=== PATIENT | male | born 1940 | race Caucasian/White ===

== ENCOUNTER 2016-08-15 17:52 | Inpatient (IN) | payer MEDICARE, OTHER ==
[~2016-08-15] VITALS: Ht 180.3 cm; Wt 95.5 kg
[2016-08-15 19:08] LABS: HEMATOCRIT 31.2 % (42.0-54.0); HEMOGLOBIN 10.3 g/dL (13.5-17.5); MCH 34.9 pg (26.0-34.0); MCV 105.8 fL (80.0-100.0); MEAN PLATELET VOLUME 11.3 fL (7.4-10.4); PLATELET COUNT 230 10x3/uL (130-400); RBC 2.95 10x6/uL (4.20-6.10); RDW 17.7 % (11.5-14.5)
[2016-08-15 19:34] LABS: LYMPHOCYTES 10 % (15-50); MONOCYTES 1 % (2-11); NEUTROPHILS 88 % (40-80); PLATELET ESTIMATE NORMAL
[2016-08-15 19:35] LABS: ALBUMIN 2.8 g/dL (3.4-5.0); ALKALINE PHOSPHATASE 121 U/L (46-116); ALT (SGPT) 26 U/L (10-68); BILIRUBIN - TOTAL 0.58 mg/dL (0.2-1.3); CALC OSMOLALITY 282 mosm/kg (275-300); CALCIUM 9.5 mg/dL (8.5-10.1); CARBON DIOXIDE 26.9 mmol/L (21.0-32.0); CHLORIDE - SERUM 101 mmol/L (98-107); CREATININE - SERUM 1.5 mg/dL (0.6-1.3); GLUCOSE 151 mg/dL (74-106); POTASSIUM - SERUM 5.3 mmol/L (3.5-5.1); PROTEIN - SERUM 6.4 g/dL (6.4-8.2); SODIUM 137 mmol/L (136-145); UREA NITROGEN 28 mg/dL (7-18); eGFR NON AFRICAN AMERICAN 48 mL/min (90-120)
[2016-08-15 19:55] LABS: TROPONIN-I < 0.017 ng/mL (0.000-0.060)
[2016-08-15 21:55] LABS: APPEARANCE CLEAR (CLEAR); BILIRUBIN NEGATIVE (NEGATIVE); COLOR YELLOW (YELLOW); GLUCOSE NEGATIVE (NEGATIVE); KETONE NEGATIVE (NEGATIVE); LEUKOCYTE ESTERASE NEGATIVE (NEGATIVE); NITRITE NEGATIVE (NEGATIVE); PROTEIN TRACE mg/dL (NEGATIVE); UROBILINOGEN NORMAL (NORMAL)
[2016-08-15 21:56] LABS: BACTERIA FEW /hpf (NONE SEEN); EPITHELIAL CELLS 0-5 /hpf (0-5); MUCUS <1+ /lpf (NONE SEEN); WHITE CELLS - URINE 0-5 /hpf (0-5)
[2016-08-16] VITALS (14 sets, daily range): BP systolic 122–162; BP diastolic 67–116; Ht 180.3 cm; Wt 95.5 kg
--- NOTE | 2016-08-16 01:05 | NUR ---
REC'D TO ROOM 2215 FROM ER DEPT PER STRETCHER A 76 Y/O W/M PER SERVICES DR. GARNER WITH DX PNEUMONIA WITH HX LUNG CANCER. 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 IV PATENT LEFT AC SALINE LOCKED. HOB UP 40 DEGREES. O2 ON 9L/M PER OXIMYZER SAT=92-93%.ASSESSMENT PER ADMIT PACKET.
[2016-08-16] MEDS ORDERED: ELIQUIS2.5 MG PO (02:18)
[2016-08-16] MEDS ORDERED: CARDIZEM SR90 MG PO (02:19)
[2016-08-16] MEDS ORDERED: METOPROLOL TART50 MG PO (02:20)
[2016-08-16] MEDS ORDERED: SYNTHROID200 MC1 PO (02:20)
[2016-08-16] MEDS ORDERED: LIPITOR80 MG PO (02:21)
[2016-08-16] MEDS ORDERED: XALATAN 0.0052.5 ML EACH EYE (02:21)
[2016-08-16] MEDS ORDERED: PACERONE200 MG PO (02:23)
[2016-08-16] MEDS ORDERED: ICAP PO (02:27)
[2016-08-16] MEDS ORDERED: VITAMIN B COMPL1 TAB PO (02:28)
[2016-08-16] MEDS ORDERED: MULTI-DAY VITAM1 TAB PO (02:30)
[2016-08-16] MEDS ORDERED: FLORANEX / LACT1 TAB PO (02:32)
[2016-08-16] MEDS ORDERED: MYLANTA / MAALO30 ML PO (02:33)
[2016-08-16] MEDS ORDERED: MELATONIN5 MG PO (02:34)
[2016-08-16] MEDS ORDERED: MILK OF MAGNESI30 ML PO (02:35)
[2016-08-16] MEDS ORDERED: ACETAMINOPHEN500 M1 PO (02:37)
[2016-08-16] MEDS ORDERED: HYDROCODONE-APA1 TAB PO (02:38)
--- NOTE | 2016-08-16 03:00 | NUR ---
RT HERE FOR UPDRAFT TX INCREASED O2 TO 12 L/M. IV FLUIDS OF NS INFUSING AT 75CC'S/HR VOIDED IN URINAL.SR UP X2 CALL LIGHT WITHIN REACH.
--- NOTE | 2016-08-16 05:05 | NUR ---
EYES CLOSED RESPIRATIONS WITH EASE AND UNLABORED
[2016-08-16 06:02] LABS: HEMATOCRIT 30.1 % (42.0-54.0); HEMOGLOBIN 9.9 g/dL (13.5-17.5); MCH 34.5 pg (26.0-34.0); MCHC 32.9 g/dL (31.0-37.0); MCV 104.9 fL (80.0-100.0); MEAN PLATELET VOLUME 11.4 fL (7.4-10.4); PLATELET COUNT 229 10x3/uL (130-400); RBC 2.87 10x6/uL (4.20-6.10); RDW 17.6 % (11.5-14.5); WBC 21.8 10x3/uL (4.8-10.8)
[2016-08-16 06:10] LABS: ANION GAP 15.5 mmol/L (8-16); CALCIUM 9.1 mg/dL (8.5-10.1); CARBON DIOXIDE 25.7 mmol/L (21.0-32.0); CREATININE - SERUM 1.4 mg/dL (0.6-1.3)
[2016-08-16 06:15] LABS: POTASSIUM - SERUM 4.2 mmol/L (3.5-5.1)
[2016-08-16 06:41] LABS: ANISOCYTOSIS 1+; LYMPHOCYTES 4 % (15-50); MONOCYTES 5 % (2-11); NEUTROPHILS 87 % (40-80); PLATELET ESTIMATE NORMAL
--- NOTE | 2016-08-16 08:00 | NUR ---
AWAKE AND ALERT AT THIS TIME. OXYGEN ON 12L VIA OXYMIZER. UNABLE TO OBTAIN DAILY WEIGHT DUE TO PT UNABLE TO STAND AND WHITE WEIGH BED NOT AVAILABLE AT THIS TIME. CALL LIGHT IN REACH. BOX ALARM APPLIED TO BED AND NON SKID SOCKS APPLIED. IV TO LEFT AC PATENT WITH NO S/S OF INFILTRATION PRESENT. CALL LIGHT IN REACH, WILL CONTINUE WITH PLAN OF CARE.
--- NOTE | 2016-08-16 10:58 | NUR ---
SCD'S APPLIED TO BLE AT THIS TIME AND EXPLAINED TO PT AND HIS SPOUSE.
--- NOTE | 2016-08-16 12:00 | NUR ---
TELEMETRY PLACED ON PT. IN UNCONTROLLER A-FIB PER MICHAEL, ESTATE AGENT.
[2016-08-16 12:50] LABS: CKMB 1.3 U/L (0.0-3.6); CREATINE KINASE 52 UL (21-232); PRO BNP 1801 pg/mL (0-450); TROPONIN-I < 0.017 ng/mL (0.000-0.060)
--- NOTE | 2016-08-16 14:01 | NUR ---
TO XRAY PER BED AND PORTABLE OXYGEN AT 4LNC. REPORT GIVEN TO ALDAIR. TO ICU AFTER CT
--- NOTE | 2016-08-16 14:12 | NUR ---
PT ARRIVED ON UNIT VIA BED FROM CT. RT AT BEDSIDE, SET UP VAPOTHERM AT 100% 40L. ABLE TO ANSWER ALL QUESTIONS AND OBEY COMMANDS. ALERT AND ORIENTED X4. BREATHING LABORED AND PT TACHYPNIC BUT BETTER ON VAPOTHERM. MEDS TO BE GIVEN AND DOCUMENTED PER ORDER. SHIFT ASSESSMENT DOCUMENTED. PT GIVEN URINAL TO VOID NEEDED. SCDS ON LOWER EXTREMITIES BILAT. WILL CONTINUE TO MONITOR CLOSELY. O2 SAT BEING MONITORED AND ALARMS ON.
[2016-08-16 17:00] LABS: CKMB 1.5 U/L (0.0-3.6); CREATINE KINASE 56 UL (21-232)
--- NOTE | 2016-08-16 17:00 | NUR ---
PT ATTEMPTING TO HAVE BM ON BEDPAN. GIVEN DINNER TRAY. WILL ALLOW PT TO EAT AFTER BM. PT REMAINS IN UNCONTROLLED AFIB, MONITORING CLOSELY
[2016-08-16 17:01] LABS: TROPONIN-I < 0.017 ng/mL (0.000-0.060)
--- NOTE | 2016-08-16 17:35 | NUR ---
RN AND DR VICTORIA DISCUSSED CODE STATUS WITH PT. HE STATES THAT HE DOES NOT WANT TO BE INTUBATED OR RESUSCITATED IN THE EVENT OF A CODE, HE WISHES THAT WE USE EMERGENCY DRUGS ONLY. ORDER IN FOR CODE STATUS AND CODE REQUEST SHEET FILLED OUT, SIGNED, AND IN CHART
--- NOTE | 2016-08-16 20:23 | NUR ---
VENOUS DOPPLER DONE. DR. GEORGES NOTIFIED OF HR STILL 140 AND STATUS REPORT GIVEN, ORDER TO GO TO MAX OF 20MG/HR ON CARDIZEM GTT.
--- NOTE | 2016-08-16 21:04 | NUR ---
PO MEDS GIVEN PER MD ORDER.
--- NOTE | 2016-08-16 21:41 | NUR ---
DR. REYES AND NOTIFIED OF HR 140 WITH CARDIZEM GTT AT 20MG/HR - NEW ORDERS REC'D.
--- NOTE | 2016-08-16 23:19 | NUR ---
REASSESSMENT PER FLOWSHEET, NO ACUTE CHANGES.. CM - AFLUTTER RATE 133. FIO2 AT 65%. PT DENIES NEEDS.
[2016-08-16 23:43] LABS: CKMB 1.8 U/L (0.0-3.6); CREATINE KINASE 59 UL (21-232)
[2016-08-16 23:45] LABS: TROPONIN-I < 0.017 ng/mL (0.000-0.060)
[2016-08-17] VITALS (25 sets, daily range): BP systolic 138–178; BP diastolic 50–101
--- NOTE | 2016-08-17 00:49 | NUR ---
CM - VARIABLE A-FLUTTER, RATE 90S - 110S. FIO2 NOW 50%.. PT REPORTS "FEELING BETTER"..ALARMS ON AND C/L IN REACH.
--- NOTE | 2016-08-17 02:20 | NUR ---
CM- NSR RATE 90S.
--- NOTE | 2016-08-17 03:15 | NUR ---
REASSESSMENT PER FLOWSHEET, NO ACUTE CHANGES..PT REPORTS ADEQUATE PAIN RELIEF. VSS. C/L IN REACH.
[2016-08-17 03:40] LABS: BASOPHILS 0 % (0-2); EOSINOPHILS 0 % (0-7); HEMATOCRIT 28.1 % (42.0-54.0); HEMOGLOBIN 9.4 g/dL (13.5-17.5); IMMATURE GRANULOCYTES 0.3 % (0-5); LYMPHOCYTES 3.9 % (15-50); MCH 34.4 pg (26.0-34.0); MCHC 33.5 g/dL (31.0-37.0); MCV 102.9 fL (80.0-100.0); MONOCYTES 1.7 % (2-11); NEUTROPHILS 94.1 % (40-80); PLATELET COUNT 199 10x3/uL (130-400); RBC 2.73 10x6/uL (4.20-6.10); WBC 15.2 10x3/uL (4.8-10.8)
[2016-08-17 04:08] LABS: ALBUMIN 2.1 g/dL (3.4-5.0); ANION GAP 12.4 mmol/L (8-16); BILIRUBIN - TOTAL 0.81 mg/dL (0.2-1.3); CALCIUM 9.2 mg/dL (8.5-10.1); CARBON DIOXIDE 26.1 mmol/L (21.0-32.0); CREATININE - SERUM 1.2 mg/dL (0.6-1.3); PROTEIN - SERUM 6.1 g/dL (6.4-8.2)
[2016-08-17 04:09] LABS: POTASSIUM - SERUM 3.5 mmol/L (3.5-5.1)
--- NOTE | 2016-08-17 14:45 | NUR ---
PT REQUIRING 100% VAPOTHERM AND SPO2 DROPS TO 80% AND IS UNABLE TO RECOVER WITH DEEP BREATHS. 100% BIPAP PLACED AND DR GEORGES NOTIFIED. SPO2 INCREASED TO 96% WITH BIPAP.
--- NOTE | 2016-08-17 19:00 | NUR ---
REPORT RECEIVED AND ASSESSMENT COMPLETED. SEE FLOWSHEET FOR FULL DETAILS. PT ON BIPAP AT 75 AT THIS TIME. LUNGS HAVE RONCHI IN UPPER LOBES. LOWER LOBES DIMINISHED. QUICKLY DESATS WITH ACTIVITY. PT REQUESTED ANXIETY MED. WILL CONTACT DR GEORGES.
--- NOTE | 2016-08-17 21:17 | NUR ---
PORT IV INFILTRATED; NEEDLE CAME OUT. REINSERTED NEW IV INTO PORT; PATENT. DRAWS AND FLUSHES APPROPRIATELY. WILL CONTINUE TO MONITOR.
--- NOTE | 2016-08-17 23:30 | NUR ---
REASSESSMENT COMPLETED. SEE FLOWSHEET FOR FULL DETAILS. PT NOW ON BIPAP AT 100%.
[2016-08-18] VITALS (24 sets, daily range): BP systolic 120–177; BP diastolic 68–119
--- NOTE | 2016-08-18 01:00 | NUR ---
PT BECOMING CONFUSED SHIFT PROGRESSESS WILL CONTINUE TO MONITOR FOR CHANGES.
--- NOTE | 2016-08-18 03:52 | NUR ---
PT REFUSING TO KEEP SAFE. REMOVING BIPAP; O2 SATS QUICKLY FALL 75-85%. PT HAD PURPLE/BLUE DISCOLORATION IN FACE AND BEGAN TO WAVE ARMS AROUND AND WOULDN'T LET THE BIPAP BE PLACED. RESTRAINTS INITIATED.
[2016-08-18 04:46] LABS: BASOPHILS 0 % (0-2); EOSINOPHILS 0 % (0-7); HEMATOCRIT 28.3 % (42.0-54.0); HEMOGLOBIN 9.3 g/dL (13.5-17.5); IMMATURE GRANULOCYTES 0.5 % (0-5); LYMPHOCYTES 0.9 % (15-50); MCH 33.9 pg (26.0-34.0); MCHC 32.9 g/dL (31.0-37.0); MCV 103.3 fL (80.0-100.0); MEAN PLATELET VOLUME 11.2 fL (7.4-10.4); MONOCYTES 3.9 % (2-11); NEUTROPHILS 94.7 % (40-80); PLATELET COUNT 214 10x3/uL (130-400); RBC 2.74 10x6/uL (4.20-6.10); RDW 16.9 % (11.5-14.5); WBC 17.1 10x3/uL (4.8-10.8)
[2016-08-18 05:08] LABS: ALBUMIN 2.1 g/dL (3.4-5.0); BILIRUBIN - TOTAL 0.63 mg/dL (0.2-1.3); CALCIUM 9.1 mg/dL (8.5-10.1); CARBON DIOXIDE 25.6 mmol/L (21.0-32.0); CREATININE - SERUM 1.4 mg/dL (0.6-1.3); POTASSIUM - SERUM 3.6 mmol/L (3.5-5.1); PROTEIN - SERUM 6.3 g/dL (6.4-8.2)
--- NOTE | 2016-08-18 05:39 | NUR ---
LABETALOL 10 MG GIVEN AT 2218 AND 0410 FOR SBP >170. 0530 PT O2 SAT DROPPING AND HR INCREASING. SAT NOW AT 89% AND HR AT 115. DR GEORGES CALLED. NEW ORDER RECEIVED FOR MORPHINE. WILL GIVE NEEDED FOR AIR HUNGER
--- NOTE | 2016-08-18 09:19 | NUR ---
Nutrition follow-up: Diet: low sodium with chocolate Ensure all meals PO intake poor due to pt struggling to breath at this time. Labs reviewed FSBS high due to high dose steroids in use +BM Pt will need nutrition support started within 24 hours if medically feasible. RDN following.
--- NOTE | 2016-08-18 12:52 | NUR ---
1000-PT INC OF URINE AND IS UNABLE TO TOLERATE LINEN CHANGE. IBARRA CATH PLACED ORDERED. PT BATHED AND LINENS CHANGED. DR VICTORIA HERE THIS AM. PT IS TACHYPNIC EVEN AFTER 2MG MS GIVEN. 5MG MS GIVEN ORDERED AND PT RESTING QUIETLY.
--- NOTE | 2016-08-18 15:15 | NUR ---
* Is the patient Alert and Oriented? Yes 0 * How many steps to enter\exit or inside your home? Ramp 0 * PCP Dr. Nitish Batista 0 * Pharmacy [facility] 0 * Preadmission Environment Long Term Facility 0 * Facility Name [facility] 0 * ADLs Partial Dependent 0 * Partial ADLs (Assistance needed) Ambulation Bathing Dressing Medication Management Toileting Transfers 0 * Equipment Bedside Commode Cane Elevated [place] Seat Oxygen Rolling Walker Shower Chair 0 * List name and contact numbers for known caregivers / representatives who currently or will assist patient after discharge: Spouse - Angelina [phone] 0 * Additional services required to return to the preadmission environment? Yes 0 * Can the patient safely return to the preadmission environment? Yes 0 * Has this patient been hospitalized within the prior 30 days at any hospital? Yes 08/18/2016 15:08 DCP: Discharge Planning Patient Name: SABINE VICK Admission Status: ER Accout number: [id number] Admission Date: 08-15-2016 : 1938 Admission Diagnosis:PNEUMONIA, UNSPECIFIED ORGANISM Attending: PRICILLA Current LOS: 3 Planned Disposition: Long Term Facility Primary Insurance: [facility] Discharge Planning Comments: CM met with spouse at bedside. She states patient was living at home with her until about a month ago - she states he has been at [facility] twice in the last 30 days -at discharge both times, he went to [facility] for skilled rehab. She reports he required assistance for all ADL's. She states patient will return to SNF at discharge for further rehab. Answered questions & concerns. CM will follow. Documentation Lead: Magnolia Michelle
--- NOTE | 2016-08-18 19:00 | NUR ---
REPORT REC'D.PATINET CARE ASSUMED. ASSESSMENT COMPLETED. SEE FLOW SHEETS FOR ALL FINDINGS. PT ON BIPAP, AROUSES EASILY WITH VOICES, FOLLOW COMMANDS, ANSWERED QUESTIONS. SR ON CM WITH HR AT 84, LUNG SOUNDS CLEAR/ DIMINSHED TO ALL SERRANO,UNLABORED AT THIS TIME. DENIES ANY DISCOMFORT AT THIS TIME. IBARRA INTACT TO GRAVITY WITH CL/Y DRAINAGE TO BAG. PPP. CALL LIGHT IN REACH. JER N LOW POSITIONED AND LOCKED. WILL CONT TO MONITOR.
--- NOTE | 2016-08-18 21:00 | NUR ---
NO VISITORS AT THIS TIME. SCHEDULED MEDS GIVEN PER ORDER. NO NEEDS VOICES. REPOSITIONED FOR COMFORT. HOB UP, SIDE RAILS UPX2. CALL LIGHT IN REACH.
--- NOTE | 2016-08-18 23:20 | NUR ---
REASSESSMENT COMPLETED. SEE FLOW SHEETS FOR ALL FINDINGS. NO ACUTE CHANGES NOTED AT THIS TIME. VSS. SR ON CM. DENIES ANY DISCOMFORT. REPOSITIONED FOR COMFORT. PILLOWS IN USE FOR SUPPORT. CALL LIGHT IN REACH. CPOC.
[2016-08-19] VITALS (25 sets, daily range): BP systolic 119–169; BP diastolic 60–96
--- NOTE | 2016-08-19 01:00 | NUR ---
PT ON BIPAP RESTING QUIETLY WITHOUT DISTRESS. VSS. SR ON CM. NO NEEDS VOICES. CPOC
--- NOTE | 2016-08-19 03:00 | NUR ---
REASSESSMENT COMPLETED PER FLOW SHEETS. NO ACUTE CHANGES IN PT'S CONDITON NOTED. VSS. SR ON CM. CPOC.
[2016-08-19 03:58] LABS: BASOPHILS 0 % (0-2); EOSINOPHILS 0 % (0-7); HEMATOCRIT 27.4 % (42.0-54.0); IMMATURE GRANULOCYTES 0.3 % (0-5); LYMPHOCYTES 2.2 % (15-50); MCH 33.7 pg (26.0-34.0); MCHC 32.8 g/dL (31.0-37.0); MCV 102.6 fL (80.0-100.0); MONOCYTES 4.6 % (2-11); NEUTROPHILS 92.9 % (40-80); PLATELET COUNT 188 10x3/uL (130-400); RBC 2.67 10x6/uL (4.20-6.10); RDW 16.6 % (11.5-14.5)
[2016-08-19 04:00] LABS: WBC 8.8 10x3/uL (4.8-10.8)
--- NOTE | 2016-08-19 04:00 | NUR ---
I&O COMPLETED WITHOUT DIFFIC.
[2016-08-19 05:02] LABS: ALBUMIN 2.1 g/dL (3.4-5.0); BILIRUBIN - TOTAL 0.4 mg/dL (0.2-1.3); CALCIUM 9.3 mg/dL (8.5-10.1); CARBON DIOXIDE 27.8 mmol/L (21.0-32.0); CREATININE - SERUM 1.5 mg/dL (0.6-1.3); POTASSIUM - SERUM 3.8 mmol/L (3.5-5.1)
--- NOTE | 2016-08-19 06:00 | NUR ---
NO VISITORS AT THIS TIME. VSS.
[2016-08-19 11:19] LABS: ANA REFLEX - DIRECT Negative (Negative)
--- NOTE | 2016-08-19 19:00 | NUR ---
Assessment complete. See flowsheet. Pt resting upon entrance into room with VSS and awakens to verbal stimulation. Pt alert, oriented x4 and following all commands and conversation with no neuro deficits noted. Pupils size 3 bilaterally ERRLA. Pt receiving O2 via 60% Vapotherm. Lung sounds clear to all so with diminished lower lobes. Pt with weak/non-productive cough. HR SR with S1S2 auscultated. All peripheral pulses +2 with capillary refill <3 seconds. Left upper chest infusiport site CDI; no s/s infection with 1/2NS infusing @ 50cc/hr. Abdomen soft with BS present to all quadrants. Pt denies nausea. Ocamop catheter secure retrieving concentrated, yellow urine. Pt pulled up in bed and positioned to left side with HOB @ 30 degrees. Arms and heels rebridged. Pt denies pain or distress at this time. SCDs secure. Fresh ice water provided. CPOC.
--- NOTE | 2016-08-19 20:22 | NUR ---
FiO2 increased to 70% per Micki RT for SPO2 88%
--- NOTE | 2016-08-19 21:00 | NUR ---
PM meds administered. Pt resting with VSS and denies further needs at this time. Call light and bedside table remain within pt reach. CPOC.
--- NOTE | 2016-08-19 23:00 | NUR ---
Reassessment complete. See flowsheet. Pt resting quietly and remain on vapotherm @ 70%. VSS. SPO2 93% at this time. Pain denied. No neuro changes to note. Pt lung sounds remain clear to all so with diminished lower lobes. HR SR. NO IVF changes to note. BS +. Ocampo remains secure retrieving concentrated, genoveva urine. Pt helped to reposition to back with HOB @ 30 degrees. Knees bent and arms/heels bridged. Pt denies further needs at this time and continues to rest. Call light and bedside table remain within pt reach. CPOC.
[2016-08-20] VITALS (24 sets, daily range): BP systolic 155–188; BP diastolic 58–125
--- NOTE | 2016-08-20 01:00 | NUR ---
Pt resting quietly with VSS. No s/s pain or distress and allowed to continue resting undisturbed. Call light and bedside table remain within pt reach. CPOC.
--- NOTE | 2016-08-20 03:00 | NUR ---
Reassessment complete. See flowsheet. Pt resting quietly and remain on vapotherm @ 70%. VSS. SPO2 94% at this time. Pain denied. No neuro changes to note. Pt lung sounds remain clear to all so with diminished lower lobes. HR SR. NO IVF changes to note. BS +. Ocampo remains secure retrieving concentrated, yellow urine. Pt helped to reposition to back with HOB @ 30 degrees for AM CXR. Arms and heels remain bridged. Fresh ice water provided per pt request. Call light and bedside table remain within pt reach. CPOC.
[2016-08-20 04:47] LABS: BASOPHILS 0 % (0-2); EOSINOPHILS 0 % (0-7); HEMATOCRIT 26.3 % (42.0-54.0); HEMOGLOBIN 8.7 g/dL (13.5-17.5); IMMATURE GRANULOCYTES 0.6 % (0-5); LYMPHOCYTES 2.8 % (15-50); MCH 33.7 pg (26.0-34.0); MCHC 33.1 g/dL (31.0-37.0); MCV 101.9 fL (80.0-100.0); MONOCYTES 4.5 % (2-11); NEUTROPHILS 92.1 % (40-80); PLATELET COUNT 175 10x3/uL (130-400); RBC 2.58 10x6/uL (4.20-6.10); RDW 16.5 % (11.5-14.5); WBC 10.8 10x3/uL (4.8-10.8)
--- NOTE | 2016-08-20 05:00 | NUR ---
Pt resting quietly with VSS; no s/s pain or distress. Call light and bedside table remain within pt reach. CPOC.
[2016-08-20 05:03] LABS: ALBUMIN 1.9 g/dL (3.4-5.0); ANION GAP 10.2 mmol/L (8-16); BILIRUBIN - TOTAL 0.41 mg/dL (0.2-1.3); CALCIUM 9.1 mg/dL (8.5-10.1); CREATININE - SERUM 1.8 mg/dL (0.6-1.3); MAGNESIUM - SERUM 1.4 mg/dL (1.8-2.4); PHOSPHOROUS 3.3 mg/dL (2.5-4.9); POTASSIUM - SERUM 4.2 mmol/L (3.5-5.1); PROTEIN - SERUM 5.6 g/dL (6.4-8.2)
--- NOTE | 2016-08-20 10:57 | NUR ---
NO CHANGE TO PRIMARY ASSESSMENT
--- NOTE | 2016-08-20 19:00 | NUR ---
Assessment complete. See flowsheet. Pt receiving UDTX upon entrance into room with VSS and is alert and oriented to person, place, time and following all commands and conversation with no neuro deficits noted. Pupils size 3 bilaterally ERRLA. Pt receiving O2 via 85% Vapotherm. Lung sounds clear to all so with diminished lower lobes. Pt with weak/non-productive cough. HR SR with S1S2 auscultated. All peripheral pulses +2 with capillary refill <3 seconds. Right upper chest infusiport site CDI; no s/s infection with 1/2NS infusing @ 75cc/hr. Abdomen soft with BS present to all quadrants. Pt denies nausea. Ocampo catheter secure retrieving concentrated, yellow urine. Pt pulled up in bed and positioned to left side with HOB @ 30 degrees. Arms and heels bridged. Pt denies pain or distress at this time. SCDs secure. Bedside table placed within pt reach. Call light and left hand of patient. Further needs denied. CPOC.
--- NOTE | 2016-08-20 21:00 | NUR ---
Pt resting with VSS. PM medications administered with PRN Clonidin 0.1mg for SBP > 170mmHg. See MAY.
--- NOTE | 2016-08-20 21:30 | NUR ---
Morphine 4mg IVP administered for c/o pain to "all over" as stated by patient. See MAR.
--- NOTE | 2016-08-20 23:00 | NUR ---
Reassessment complete. See flowsheet. Pt resting quietly and remain on vapotherm @ 85%. VSS. SPO2 93% at this time. Pain denied. No neuro changes to note. Pt lung sounds remain clear to all so with diminished lower lobes. HR SR. NO IVF changes to note. BS +. Ocampo remains secure retrieving concentrated, yellow urine. Pt helped to reposition to back with HOB @ 30 degrees. Arms and heels remain bridged. Pt denies further needs at this time and continues to rest. Call light and bedside table remain within pt reach. CPOC.
[2016-08-21] VITALS (24 sets, daily range): BP systolic 136–1628; BP diastolic 74–106
--- NOTE | 2016-08-21 01:00 | NUR ---
Pt resting quietly with VSS. No s/s pain or distress. Pt allowed to continue resting undisturbed. Call light and bedside table remain within reach. CPOC.
--- NOTE | 2016-08-21 03:00 | NUR ---
Reassessment complete. See flowsheet. Pt resting quietly and remain on vapotherm @ 85%. VSS. SPO2 97% at this time. Pain denied. No neuro changes to note. Pt lung sounds remain clear to all so with diminished lower lobes. HR SR. NO IVF changes to note. BS +. Ocampo remains secure retrieving concentrated, yellow urine. Pt helped to reposition to back with HOB @ 30 degrees for AM CXR. Arms and heels remain bridged. Pain denied at this time. No further request. Call light and bedside table remain within pt reach. CPOC.
[2016-08-21 04:31] LABS: BASOPHILS 0.1 % (0-2); EOSINOPHILS 0 % (0-7); HEMATOCRIT 27.9 % (42.0-54.0); HEMOGLOBIN 9.3 g/dL (13.5-17.5); IMMATURE GRANULOCYTES 1.3 % (0-5); LYMPHOCYTES 4.2 % (15-50); MCH 33.6 pg (26.0-34.0); MCHC 33.3 g/dL (31.0-37.0); MCV 100.7 fL (80.0-100.0); MEAN PLATELET VOLUME 11.5 fL (7.4-10.4); MONOCYTES 4.5 % (2-11); NEUTROPHILS 89.9 % (40-80); PLATELET COUNT 181 10x3/uL (130-400); RBC 2.77 10x6/uL (4.20-6.10); RDW 16.4 % (11.5-14.5); WBC 10.1 10x3/uL (4.8-10.8)
[2016-08-21 04:56] LABS: ALBUMIN 1.9 g/dL (3.4-5.0); ANION GAP 11.6 mmol/L (8-16); BILIRUBIN - TOTAL 0.47 mg/dL (0.2-1.3); CALCIUM 9.4 mg/dL (8.5-10.1); CARBON DIOXIDE 27.7 mmol/L (21.0-32.0); CREATININE - SERUM 1.9 mg/dL (0.6-1.3); DIGOXIN 2.35 ng/mL (0.90-2.00); MAGNESIUM - SERUM 1.5 mg/dL (1.8-2.4); POTASSIUM - SERUM 4.3 mmol/L (3.5-5.1); PROTEIN - SERUM 5.5 g/dL (6.4-8.2); VANCOMYCIN - RANDOM 25.2 ug/mL (10.0-20.0)
--- NOTE | 2016-08-21 05:00 | NUR ---
Pt self-positioned to left side and resting quietly with VSS. No s/s pain or distress. Pt allowed to continues resting undisturbed. Call light and bedside table remain within pt reach. CPOC.
--- NOTE | 2016-08-21 11:00 | NUR ---
NO CHANGE TO PRIMARY ASSESSMENT
--- NOTE | 2016-08-21 15:00 | NUR ---
NO CHANGE NOTED
--- NOTE | 2016-08-21 19:00 | NUR ---
Assessment complete. See flowsheet. Pt very anxious upon entrance into room with VSS and is alert and oriented to person, place, time/sit; following all commands and conversation with no neuro deficits noted. Pupils size 3 bilaterally ERRLA. Pt receiving O2 via 65% Vapotherm. Lung sounds clear to all so with diminished lower lobes. Pt with weak/non-productive cough. HR SR with PACs. S1S2 present. All peripheral pulses +2 with capillary refill <3 seconds. Right upper chest infusiport site CDI; no s/s infection with 1/2NS infusing @ 75cc/hr. Abdomen soft with BS present to all quadrants. Nausea denied. Ocampo catheter secure retrieving concentrated, yellow urine. Pt pulled up in bed and positioned to left side with HOB @ 30 degrees. Arms and heels bridged. Pt rates pain 5 out of 10 "all over" at this time but appears more anxious than in pain. Not time for PRN morphine at this time. Ativan 1mg IVP administered. Pt calmed. Lights in room off per pt request. this time. SCDs secure. Call light and bedside table placed within pt reach. CPOC.
--- NOTE | 2016-08-21 21:00 | NUR ---
Pt resting quietly with VSS; no s/s pain or distress and allowed to continue resting undisturbed.
--- NOTE | 2016-08-21 23:00 | NUR ---
Reassessment complete. See flowsheet. Pt resting quietly and remain on vapotherm @ 65. FiO2 94% at this time. Pain denied. No neuro changes to note. Pt lung sounds remain clear to all so with diminished lower lobes. HR SR. NO IVF changes to note. BS +. Ocampo remains secure retrieving concentrated, yellow urine. Pt helped to reposition to back with HOB @ 30 degrees. Arms and heels remain bridged. Pt denies further needs at this time and continues to rest. Call light and bedside table remain within pt reach. CPOC.
[2016-08-22] VITALS (24 sets, daily range): BP systolic 138–176; BP diastolic 73–94
--- NOTE | 2016-08-22 01:00 | NUR ---
Pt repositioned to right side. VSS. Pt denies pain at this time. Call light and bedside table remain within pt reach. CPOC.
--- NOTE | 2016-08-22 03:00 | NUR ---
Reassessment complete. See flowsheet. Pt resting quietly and awakens to verbal stimulation. FiO2 65%. SPO2 96% at this time. Pain denied. No neuro changes to note. Pt lung sounds remain clear to all so with diminished lower lobes. HR SR. NO IVF changes to note. BS +. Ocampo remains secure retrieving concentrated, yellow urine. Pt helped to reposition to back with HOB @ 30 degrees for AM CXR. Arms and heels remain bridged. Pain denied at this time. No further request. Call light and bedside table remain within pt reach. CPOC.
[2016-08-22 04:34] LABS: BASOPHILS 0 % (0-2); EOSINOPHILS 0 % (0-7); HEMATOCRIT 27.3 % (42.0-54.0); HEMOGLOBIN 9.3 g/dL (13.5-17.5); IMMATURE GRANULOCYTES 1.6 % (0-5); LYMPHOCYTES 3.6 % (15-50); MCH 33.9 pg (26.0-34.0); MCHC 34.1 g/dL (31.0-37.0); MCV 99.6 fL (80.0-100.0); MEAN PLATELET VOLUME 11.7 fL (7.4-10.4); MONOCYTES 4.2 % (2-11); NEUTROPHILS 90.6 % (40-80); PLATELET COUNT 166 10x3/uL (130-400); RBC 2.74 10x6/uL (4.20-6.10); RDW 16.4 % (11.5-14.5); WBC 10.3 10x3/uL (4.8-10.8)
[2016-08-22 04:56] LABS: ALBUMIN 1.8 g/dL (3.4-5.0); ANION GAP 10.4 mmol/L (8-16); BILIRUBIN - TOTAL 0.42 mg/dL (0.2-1.3); CALCIUM 8.3 mg/dL (8.5-10.1); CARBON DIOXIDE 26.4 mmol/L (21.0-32.0); CREATININE - SERUM 1.7 mg/dL (0.6-1.3); MAGNESIUM - SERUM 1.6 mg/dL (1.8-2.4); PHOSPHOROUS 4.4 mg/dL (2.5-4.9); POTASSIUM - SERUM 3.8 mmol/L (3.5-5.1); PROTEIN - SERUM 4.9 g/dL (6.4-8.2); VANCOMYCIN - RANDOM 17.3 ug/mL (10.0-20.0)
--- NOTE | 2016-08-22 05:00 | NUR ---
All IV tubing changes completed and labeled with swabcaps attached to ports. Pt resting quietly with VSS. No s/s pain or distress and allowed to continue resting undisturbed. Call light and bedside table remain within pt reach. CPOC.
--- NOTE | 2016-08-22 07:00 | NUR ---
PT AWAKE AND ALERT, APPEARS TO BE ORIENTED X4 AT THIS TIME. ABLE TO OBEY COMMANDS. NORMAL SINUS ON MONITOR. PT REMAINS ON VAPOTHERM AT 40L AT THIS TIME. BREATHING IS SHALLOW AND SLIGHTLY LABORED. MONITORING RESP STATUS CLOSELY. COMPLETE SHIFT ASSESSMENT DOCUMENTED PER FLOWSHEET. PT GIVEN ENSURE FOR BREAKFAST, REFUSED TRAY. WILL CONTINUE TO MONITOR
--- NOTE | 2016-08-22 09:00 | NUR ---
PT ASKING WHERE HIS FAMILY IS AND APPEARS TO BE SLIGHTLY DISORENTED TO SITUATION AT THIS TIME. ABLE TO ANSWER QUESTIONS APPROPRIOATELY AFTER REORIENTING. WILL CONTINUE TO MONITOR
--- NOTE | 2016-08-22 09:43 | NUR ---
Nutrition follow-up: Diet: low sodium with chocolate Ensure TID Pt drinking Ensure; refusing some meals labs reviewed Wt: 209# Breathing better at this time RDN following.
--- NOTE | 2016-08-22 12:00 | NUR ---
FAMILY AT BEDSIDE. PT APPEARS MORE ORIENTED WHILE FAMILY IS WITH HIM. CONTINUING TO REORIENT. WILL CONTINUE TO MONITOR CLOSELY
--- NOTE | 2016-08-22 14:00 | NUR ---
PT PULLED VAPOTHERM OFF AND O2 SAT DROPPED IMMEDIATELY INTO 50S. VAPOTHERM BACK ON PT WITHIN 10 SECONDS AND O2 SAT INCREASED TO 90S. O2 SAT REMAINS VERY LABILE AT THIS TIME. WILL MONITOR CLOSELY
--- NOTE | 2016-08-22 16:00 | NUR ---
PT STATES HE DOES NOT FEEL WELL BUT UNABLE TO SPECIFY WHAT IS WRONG AT THIS TIME. WILL CONTINUE TO MONITOR. VITAL SIGNS STABLE.
--- NOTE | 2016-08-22 18:00 | NUR ---
NO ACUTE CHANGES IN PT STATUS. WILL CONTINUE TO MONITOR CLOSELY. VITAL SIGNS STABLE.
--- NOTE | 2016-08-22 19:00 | NUR ---
Assessment complete. See flowsheet. Pt awake upon entrance into room with VSS. Pt oriented x4 and following conversation but lethargic. Pupils size 3 bilaterally ERRLA. Pt moving all extremities with 3/5 strength with generalized edema to all extremities. Pt receiving O2 @ 65% vapotherm with SPO2 97% currently. Lung sounds clear to all so with diminished lower lobes. HR atrial flutter controlled rate 67bpm. S1S2 auscultated. All peripheral pulses +2 with capillary refill <3 seconds. Right upper chest infusiport CDI with 1/2NS infusing @ 75cc/hr. Abdomen soft, non-tender with BS present to all quadrants. Ocampo catheter secure retrieving concentrated, yellow urine. Temp 97.6F temporally. SCDs secure bilaterally. Pt helped to reposition to left side. Arms and heels bridged. HOB @ 30 degrees. NO s/s pain or distress. CPOC.
--- NOTE | 2016-08-22 21:00 | NUR ---
Pt repositioned to right side. HOB @ 30 degrees. Fresh ice water provided for PM medication administration. Morphine 4mg IVP administered for c/o pain to back and neck. See MAR. Pt disoriented upon awakening but reorients easily and remains calm. Call light and bedside table remain within pt reach. CPOC.
--- NOTE | 2016-08-22 22:46 | NUR ---
Pt awake and anxious/agitated and screaming "help me." Pt states " I don't know who I am." Pt calmed and helped to reposition for comfort. Arms and heels rebridged. Ativan 1mg IVP administered. See MAR. CPOC.
--- NOTE | 2016-08-22 23:00 | NUR ---
Reassessment complete. See flowsheet. Pt confused upon awakening and oriented to person only. Pupils size 3 bilaterally ERRLA. Pt continues to follow commands and is much calmer now after Ativan 1mg IV dose. O2 remains via vapotherm @ 65%. Lung sounds remain clear to all os with diminished lower lobes. HR remains Atrial flutter. S1S2 auscultated. All peripheral pulses +2 with capillary refill <3 seconds. Infusiport site CDI with NO IVF changes to note. BS +. Ocampo remains secure retrieving concentrated, genoveva urine. Pt repositioned to back. HOB @ 30 degrees. Arms and heels bridged. Pain denied. CPOC.
[2016-08-23] VITALS (25 sets, daily range): BP systolic 135–182; BP diastolic 68–101
--- NOTE | 2016-08-23 00:30 | NUR ---
Pt resting with no s/s pain or distress.
--- NOTE | 2016-08-23 01:20 | NUR ---
Pt resting quietly with VSS. NO s/s pain or distress and allowed to continue resting undisturbed. Call light and bedside table remain within pt reach. CPOC.
--- NOTE | 2016-08-23 03:20 | NUR ---
Reassessment complete. See flowsheet. Pt confused upon awakening and oriented to person only but orients after waking a moment. Pt cooperative and asking what the plan is for today. Careplan relayed to patient. O2 remains via vapotherm @ 65%. Lung sounds remain clear to all so with diminished lower lobes. HR remains Atrial flutter. S1S2 auscultated. All peripheral pulses +2 with capillary refill <3 seconds. Infusiport site CDI with NO IVF changes to note. BS +. Ocampo remains secure retrieving concentrated, genoveva urine. Pt repositioned to back with HOB @ 30 degrees for AM CXR. Arms and heels bridged. Pain denied. Call light and bedside table within pt reach. CPOC.
[2016-08-23 03:40] LABS: BASOPHILS 0.1 % (0-2); EOSINOPHILS 0 % (0-7); HEMATOCRIT 31.3 % (42.0-54.0); HEMOGLOBIN 10.6 g/dL (13.5-17.5); LYMPHOCYTES 3.3 % (15-50); MCH 33.5 pg (26.0-34.0); MCHC 33.9 g/dL (31.0-37.0); MCV 99.1 fL (80.0-100.0); MEAN PLATELET VOLUME 11.7 fL (7.4-10.4); MONOCYTES 2.7 % (2-11); NEUTROPHILS 90.9 % (40-80); PLATELET COUNT 187 10x3/uL (130-400); RBC 3.16 10x6/uL (4.20-6.10); RDW 16.3 % (11.5-14.5); WBC 14.1 10x3/uL (4.8-10.8)
[2016-08-23 04:05] LABS: ANION GAP 11.7 mmol/L (8-16); BILIRUBIN - TOTAL 0.47 mg/dL (0.2-1.3); CALCIUM 8.7 mg/dL (8.5-10.1); CARBON DIOXIDE 27.7 mmol/L (21.0-32.0); CREATININE - SERUM 1.9 mg/dL (0.6-1.3); PROTEIN - SERUM 5.3 g/dL (6.4-8.2); VANCOMYCIN - RANDOM 19.7 ug/mL (10.0-20.0)
[2016-08-23 04:06] LABS: POTASSIUM - SERUM 4.4 mmol/L (3.5-5.1)
--- NOTE | 2016-08-23 05:20 | NUR ---
Pt resting quietly with VSS; no s/s pain or distress.
--- NOTE | 2016-08-23 05:56 | NUR ---
Pt c/o pain and morphine 4mg IV administered. Pt repositioned. See MAY.
--- NOTE | 2016-08-23 07:00 | NUR ---
PT AWAKE AND ALERT, DISORIENTED TO PLACE TIME AND SITUATION. FOLLOWS COMMANDS BUT INCONSISTENT. PT YELLING OUT AND CONFUSED AT THIS TIME. ATTEMPTING TO REORIENT FREQUENTLY. ATRIAL FLUTTER NOTED ON MONITOR. PT REMIANS ON VAPOTHERM AT 40L AT THIS TIME. SPOKE WITH DR VARGAS ABOUT MENTAL STATUS DECLINE AND SHE IS ADJUSTING ATIVAN AND MORPHINE. WILL CONTINUE TO MONITOR
--- NOTE | 2016-08-23 09:00 | NUR ---
ABGS DRAWN DUE TO DECLINING MENTAL STATUS AND THEY ARE STABLE. WILL CONTINUE TO MONTIOR AND REORIENT PT NEEDED.
--- NOTE | 2016-08-23 11:00 | NUR ---
NO ACUTE CHANGES IN PT STATUS AT THIS TIME. WILL CONTINUE TO MONITOR CLOSELY
--- NOTE | 2016-08-23 13:00 | NUR ---
PT REPOSITIONED IN BED AND ENCOURAGED TO DRINK FLUIDS. ORAL CARE PERFORMED. FAMILY GIVEN UPDATE AT BEDSIDE. WILL CONTINUE TO MONITOR
--- NOTE | 2016-08-23 15:00 | NUR ---
PT RESTING COMFORTABLY AFTER GIVEN PAIN MEDICATION. VITAL SIGNS STABLE. WILL CONTINUE TO MONITOR
[2016-08-23 16:11] LABS: ANCA - ANTIMYELOPEROXIDASE <9.0 U/mL (0.0-9.0); ANCA - ANTIPROTEINASE 3 <3.5 U/mL (0.0-3.5); ANCA - ATYPICAL <1:20 titer (Neg:<1:20); ANCA - CYTOPLASMIC <1:20 titer (Neg:<1:20); ANCA - PERINUCLEAR <1:20 titer (Neg:<1:20)
--- NOTE | 2016-08-23 17:00 | NUR ---
PT CONTINUES TO REST PEACEFULLY AT THIS TIME AFTER PAIN MEDICATION. SPOKE WITH TELEPRINTER INSTALLER TODAY AND SHE IS PLANNING TO SPEAK WITH TO DETERMINE HOW SHE WANTS TO PROCEED WITH CARE. WILL CONTINUE TO MONTIOR PT CLOSELY
--- NOTE | 2016-08-23 19:14 | NUR ---
RT AT BEDSIDE RECEIVING UPDRAFT. EYES CLOSED RESP REG AND NONLABORED. ALL ALARMS VERIFIED AND CHECKED. ALL IVF AND LINES DATED AND LABELED AND ARE CURRENT. SEE FLOWSHEET FOR SHIFT ASSESSMENT. PT CONTINUES TO BE MONITORED PER STANDARD ICU PROTOCOL
--- NOTE | 2016-08-23 21:00 | NUR ---
HS MEDS GIVEN PER MAY. PT TEACHING DONE LIMITED COMPREHESION. ARMS AND LEGS ELEVATED ON PILLOWS. PT DEPENDENT FOR ALL ADLS.
--- NOTE | 2016-08-23 23:00 | NUR ---
SHIFT REASSESSMENT COMPLETED SEE FLOWSHEET. NO SIGNIFICANT CHANGES. PT REMAINS CONFUSED AND AT TIMES YELLS OUT "HELP ME, HELP ME." WHEN APPROACHED PT UNABLE TO VERBALIZE WHAT HE WANTS OR NEEDS. DID EXPRESS "MY ARM FEELS " AND INDICATED HIS LEFT ARM. ARM RUBBED AND REPOSITIONED ON PILLOW. PT STATES "IT WILL GO AWAY IN A LITTLE BIT" DENIES PAIN.
[2016-08-24] VITALS (14 sets, daily range): BP systolic 136–176; BP diastolic 71–84
--- NOTE | 2016-08-24 01:00 | NUR ---
PT RESTING AT THIS TIME WITH REG NONLABORED RESP. HAS REQUIRED ADMINISTRATIONS OF NORCO WHICH WAS ONLY PARTIALLY EFFECTIVE AND THEN GIVEN DILAUDID DOCUMENTED ON MAY. THIS WAS EFFECTIVE FOR PAIN. PT HAS ALSO REQUIRED CATAPRESS FOR SBP>170, ALSO EFFECTIVE. THESE MEDS GIVEN IN PAST 2 HOURS AND DOCUMENTED ON MAY. CONTINUE TO MONITOR CLOSELY
--- NOTE | 2016-08-24 03:00 | NUR ---
SHIFT REASSESSMENT COMPLETED SEE FLOWSHEET. CVL DRESSING CHANGED W/STERILE TECHNIQUE PER PROTOCOL
--- NOTE | 2016-08-24 04:15 | NUR ---
LAB SPECIMEN DRAWN FROM [facility] AND SENT TO LAB FOR ANALYSIS
[2016-08-24 04:54] LABS: BASOPHILS 0.1 % (0-2); EOSINOPHILS 0 % (0-7); HEMATOCRIT 30.7 % (42.0-54.0); HEMOGLOBIN 10.4 g/dL (13.5-17.5); IMMATURE GRANULOCYTES 1.9 % (0-5); LYMPHOCYTES 2.2 % (15-50); MCH 33.3 pg (26.0-34.0); MCHC 33.9 g/dL (31.0-37.0); MCV 98.4 fL (80.0-100.0); MEAN PLATELET VOLUME 11.8 fL (7.4-10.4); MONOCYTES 4.5 % (2-11); NEUTROPHILS 91.3 % (40-80); PLATELET COUNT 173 10x3/uL (130-400); RBC 3.12 10x6/uL (4.20-6.10); RDW 16.3 % (11.5-14.5); WBC 17.2 10x3/uL (4.8-10.8)
--- NOTE | 2016-08-24 05:00 | NUR ---
BATH GIVEN PT TOLERATED WELL. LINENS CHANGED.
[2016-08-24 05:17] LABS: ANION GAP 13.7 mmol/L (8-16); BILIRUBIN - TOTAL 0.4 mg/dL (0.2-1.3); CALCIUM 8.6 mg/dL (8.5-10.1); CARBON DIOXIDE 24.9 mmol/L (21.0-32.0); CREATININE - SERUM 2.2 mg/dL (0.6-1.3); POTASSIUM - SERUM 4.6 mmol/L (3.5-5.1); PROTEIN - SERUM 5.2 g/dL (6.4-8.2); VANCOMYCIN - RANDOM 15.7 ug/mL (10.0-20.0)
--- NOTE | 2016-08-24 07:00 | NUR ---
PT AWAKE AND ALERT, DISORIENTED TO PLACE TIME AND SITUATION. PT YELLING OUT FOR HELP AT THIS TIME. ATTEMPTED TO REORIENT PT AND EXPLAIN REASON FOR HOSPITALIZATION. HE APPEARS TO BE ANGRY AND IRRITABLE AT THIS TIME DUE TO DECLINING HEALTH. WILL DISCUSS WITH PHYSICIANS AND EDITING CLERK ABOUT FURTHER CARE. PT IN ATRIAL FLUTTER AT THIS TIME. LUNG SOUNDS CLEAR, DIMINISHED IN LOWER LOBES BILAT. ABLE TO MOVE EXTREMITIES BUT UNABLE TO TURN IN BED AND REFUSES TO TURN AT TIMES. PT IN PAIN THAT SEEMS TO BE UNCONTROLLED WITH PAIN MEDICATION. WILL CONTINUE TO MONITOR AND ATTEMPT TO DECREASE DISCOMFORT.
--- NOTE | 2016-08-24 09:00 | NUR ---
SPOKE WITH ALICIA PAREDES, AND AIDE AND THEY ARE IN AGREEMENT THAT WE MAY DISCUSS COMFORT CARE WITH FAMILY AT THIS TIME. WILL DISCUSS WITH THEM WHEN AVAILABLE. PT PAIN APPEARS TO BE CONTROLLED AT THIS TIME AFTER PRN DILAUDID.
--- NOTE | 2016-08-24 10:00 | NUR ---
RECEIVED PT FOR CARE FROM RUBI NORRIS RN.
--- NOTE | 2016-08-24 10:07 | NUR ---
Nutrition follow-up: Diet: low sodium with chocolate ensure TID PO intake remains very poor due to pt with increased pain per nursing. Labs reviewed Wt: 210# Will need to consider nutrition support if medically feasible. RDN following.
--- NOTE | 2016-08-24 11:53 | NUR ---
DR. NOBLE AT BEDSIDE AND SPEAKING WITH PT'S AND SON.
--- NOTE | 2016-08-24 12:11 | NUR ---
PT'S FAMILY AT BEDSIDE. AGREEING WITH HOSPICE CONSULT. ORDERS IN AND CASE MANAGEMENT NOTIFIED.
--- NOTE | 2016-08-24 12:24 | NUR ---
NOTIFIED [facility] AT [phone]. SPOKE WITH ESTEPHANIA. SHE TOOK NAME AND DATE OF AND STATES SHE WILL GIVE INFORMATION TO ASHANTI SOON SHE GETS BACK FROM LUNCH.
--- NOTE | 2016-08-24 12:33 | NUR ---
FAXED REQUESTED INFORMATION TO [facility]
--- NOTE | 2016-08-24 12:47 | NUR ---
08/24/2016 9:05 DCP: Discharge Planning Rec'd call from Sally with [facility] - they want patient to wean down some on the vent prior accepting patient - would like FIO2 to be down to 40%. CM will follow.
--- NOTE | 2016-08-24 16:08 | NUR ---
DISCHARGE ORDERS RECEIVED FROM DR. NOBLE.
--- NOTE | 2016-08-24 16:16 | NUR ---
PT DISCHARGED TO HOSPICE CARE. FAMILY AT BEDSIDE.
--- NOTE | 2016-08-26 12:53 | EC ---
PATIENT:SABINE VICK DATE OF SERVICE: 08/15/16 SEX: M MEDICAL RECORD: [id number] DATE OF : 36 LOCATION:[facility] D230 AGE OF PATIENT: 76 ADMISSION DATE: 08/15/16 REFERRING PHYSICIAN: INTERPRETING PHYSICIAN: KATALINA BHAGAT MD ECHOCARDIOGRAM REPORT ECHO CHARGES 4 ECHO COMPLETE CLINICAL DIAGNOSIS: EDEMA/ASSESS EF ECHOCARDIOGRAPHIC MEASUREMENTS (adult normal given) AC root (d.<3.7cm) 4.0 LV Septum d (<1.2 cm> 1.7 Valve Excursion 1.9 LV Septum (systole) 2.2 Left Atria (s.<4.0cm> 3.4 LVPW d(<1.2cm) 1.7 RV (d.<2.3cm) 3.4 LVPW (sytole) 1.8 LV diastole(<5.6CM) 5.2 MV E-F(>70mm/sec) LV systole 3.8 LVOT Diameter 1.8 MV exc.(>10mm) 1.1 Est.ejection fraction (50-75%) Pericardial Effusion N DOPPLER: LVIT A 115 E 195 LA RVSP 27 LVOT 156 AOP1/2T Asc. Ao 170 RVOT 113 RA PA 168 AV Gradient Peak 11.53 AV Mean 7.36 AV Area 2.5 MV Gradient Peak 6.10 MV Mean 2.67 MV Area COMMENTS: Filling Machine Set Up Mechanic: Aung STEWART Photographer Aerial:Emmanuel Alexis TAPE# PACS DATE OF SERVICE: 08/17/2016 Adequate 2D echo, color flow, spectral Doppler, and M-mode. Mild LVH. LV internal dimensions are normal. Wall motion is normal. EF is greater than or equal to 55%. Aortic valve sclerosis without stenosis by Doppler interrogation. The left atrium is normal at 3.4 cm. Mitral valve is thickened. Mitral annular calcification, but only mild MR. Right-sided chamber is grossly normal. Trace TR. TRANSINT:[id number] Voice Confirmation ID: [id number] DOCUMENT ID: [id number] ECHOCARDIOGRAM REPORT [id number] SABINE VICK 08/25/2016 Edited to correct date of service, dmm. KATALINA BHAGAT MD at 1253 CC: [id number] DICTATION DATE: 08/18/16 1315 CASHIER WRAPPER: 08/18/16 2246 DIS IN 08/24/16 [place] [id number] [facility]901
== END 2016-08-24 16:18 | disposition home or self-care (01) | DRG 205 ==
LOC: D.ER 17:52 → D.ICU 22:15 → D.ER 22:15 → D.MS 22:15 → D.ICU 08-16 14:03
PROVIDERS: Emergency Medicine; Internal Medicine Pulmonary Disease; Physician Assistant; ADMIT Family Medicine
PROC: 5A09457 Assistance with Respiratory Ventilation, 24-96 Consecutive Hours, Continuous Positive Airway Pressure (ICD-10-PCS; principal; 2016-08-17)
DX: J70.2 Acute drug-induced interstitial lung disorders (principal); J96.01 Acute respiratory failure with hypoxia; C78.00 Secondary malignant neoplasm of unspecified lung; N17.9 Acute kidney failure, unspecified; I48.92 Unspecified atrial flutter; T49.0X5A Adverse effect of local antifungal, anti-infective and anti-inflammatory drugs, initial encounter; I48.2 Chronic atrial fibrillation; I12.9 Hypertensive chronic kidney disease with stage 1 through stage 4 chronic kidney disease, or unspecified chronic kidney disease; N18.9 Chronic kidney disease, unspecified; Z66 Do not resuscitate; E11.22 Type 2 diabetes mellitus with diabetic chronic kidney disease; D64.9 Anemia, unspecified; J30.9 Allergic rhinitis, unspecified; E83.42 Hypomagnesemia; K21.9 Gastro-esophageal reflux disease without esophagitis; E03.9 Hypothyroidism, unspecified; K59.00 Constipation, unspecified; F41.9 Anxiety disorder, unspecified; T46.2X5A Adverse effect of other antidysrhythmic drugs, initial encounter; E88.09 Other disorders of plasma-protein metabolism, not elsewhere classified

== ENCOUNTER 2016-08-24 16:23 | Inpatient (IN) | payer OTHER ==
[~2016-08-24] VITALS: Ht 180.3 cm; Wt 94.1 kg
[~2016-08-24 16:23] MED LIST: ACETAMINOPHEN500 M1 PO; CARDIZEM SR90 MG PO; ELIQUIS2.5 MG PO; FLORANEX / LACT1 TAB PO; HYDROCODONE-APA1 TAB PO; ICAP PO; LIPITOR80 MG PO; MELATONIN5 MG PO; METOPROLOL TART50 MG PO; MILK OF MAGNESI30 ML PO; MULTI-DAY VITAM1 TAB PO; MYLANTA / MAALO30 ML PO; PACERONE200 MG PO; SYNTHROID200 MC1 PO; VITAMIN B COMPL1 TAB PO; XALATAN 0.0052.5 ML EACH EYE
--- NOTE | 2016-08-24 16:44 | NUR ---
PT ADMITTED INTO HOSPICE CARE. FAMILY AT BEDSIDE. PT MOANING AND ANXIOUS. WILL GIVE VALIUM ORDERED. CONTINUE TO MONITOR.
--- NOTE | 2016-08-24 17:09 | NUR ---
PT SET UP WITH FABRIC AND ACCESSORIES ESTIMATOR INFUSION. BOLUS DOSE OF DILAUDID GIVEN VIA FABRIC AND ACCESSORIES ESTIMATOR. PT RESTING COMFORTABLY AT THIS TIME. RESP THERAPY NOTIFIED. WILL PULL OFF VAPOTHERM AND CHANGE TO NC IN APPROX 30 MINS WHEN PT IS RESTING COMFORTABLY AND NOT SHORT OF BREATH.
[2016-08-24 17:22] VITALS: BP 166/74; Ht 180.3 cm; Wt 94.1 kg
--- NOTE | 2016-08-24 17:48 | NUR ---
PT SWITCHED OVER TO 2LNC. TOLERATING WELL. RESP 20. NOT LABORED AT THIS TIME. FAMILY AT BEDSIDE.
--- NOTE | 2016-08-24 17:49 | NUR ---
NOTIFIED DR. VICTORIA OF PT BEING ADMITTED TO HOSPICE. HE VOICED UNDERSTANDING.
[2016-08-24 17:52] VITALS: BP 131/64
[2016-08-24 19:15] VITALS: BP 126/63
--- NOTE | 2016-08-24 19:15 | NUR ---
REPORT RECEIVED AND CARE ASSUMED. PT IS AMMITTED TO HOSPICE, FAMILY AT BEDSIDE AND AWAITNG TRANSFER TO THE FLOOR. PT IS RESTING, RESP REG AND NONLABORED CURRENTLY ON 2L O2. SEE SHIFT ASSESSMENT FLOWSHEET FOR COMPLETE ASSESSMENT
--- NOTE | 2016-08-24 21:15 | NUR ---
DR. JONES HERE TO SEE PT. REPORT CALLED TO DARI GOODRICH RISK MANAGEMENT MANAGER NOTIFIED OF ROOM NUMBER AND DIRECTIONS GIVEN
--- NOTE | 2016-08-24 21:40 | NUR ---
RECEIVED TO ROOM 2132 VIA BED FROM ICU. ON HOSPICE CARE. DX: PNEUMONIA/ SQUAMOUS CELL CARCINOMA RIGHT FOREARM. RIGHT INFUSAPORT WITH NS AT 20 CC.HR. DIVISION HUMAN RESOURCES MANAGER: DILAUDID CONTINUOUS @ 1 MG/HR. FOR COMFORT. O2 @ 2L/NC. IBARRA CATH PATENT WITH YELLOW URINE. RIGHT COMPRESSION SLEEVE ON. WILL CONTINUE TO MONITOR.
[2016-08-25 04:00] VITALS: BP 161/69
--- NOTE | 2016-08-25 08:04 | NUR ---
PT RESTING QUIETLY. HYPERBARIC TECHNICIAN REPORTED LOW 02 SAT AT 71. TURN O2 UP TO 4L, O2 SATURATION SHIVANI TO 93 PERCENT. SIDE RAILS UP X2, SCDS OFF, BED IN LOWEST POSTION. DILUDID SEED CORE OPERATOR PUMP AT 2.5 WITH NS AT 20 ML/HR. WILL CONTINUE TO MONITOR.
[2016-08-25 08:57] VITALS: BP 177/65
--- NOTE | 2016-08-25 12:02 | NUR ---
WAREHOUSE PACKER SYRINGE CHANGED. 3 MG WASTED JASMIN LONDON RN. BOLUS DOSE GIVEN OF 2MG DUE TO PT CONDITION. PT MOANING AND GROANING HEAVILY. BATH COMPLETED WHICH CONTRIBUTED TO PT'S PAIN LEVEL. WILL CTM.
--- NOTE | 2016-08-25 15:49 | NUR ---
SPOUSE HAS TOURED [facility]. HE FEELS THAT THEIR PHYSICAL THERAPY PROGRAM IS LESS THAN OPTIMAL FOR HIS . HE STATED HE WOULD TALK TO THE PATIENT WHEN SHE WOKE UP AND THEY MAY JUST HAVE US SEND HER BACK TO [facility] [place].
--- NOTE | 2016-08-25 17:24 | NUR ---
PT RESTING QUIETLY, AROUSES TO VERBAL STIMULI. RESPIRATIONS HAVE DECREASED SINCE THIS MORNING, NOW AT 12 PER MINUTE. RESPIRATIONS ARE UNLABORED. PT REPORTS PAIN WHEN ASKED. WILL BOLUS VIA DILUDID FOOD SERVER. WILL CTM.
--- NOTE | 2016-08-25 17:35 | NUR ---
PT SHOWS SIGNS OF PAIN. WHEN ASKED HE REPORTS PAIN. 2MG DILUDID IV BOLUS GIVEN VIA HISTORY PROFESSOR TO RIGHT CHEST PORT. WILL CTM.
[2016-08-25 19:00] VITALS: BP 171/51
--- NOTE | 2016-08-25 23:07 | NUR ---
Recieved patient and report, paatient is sleeping quietly, respirations even and unlabored, family at bedside, RN NEONATAL pump, bed in lowest position, and locked, no acute distress noted.
--- NOTE | 2016-08-26 03:21 | NUR ---
At 0220 Diluadid 2 mg bolus dose from EMERGENCY MANAGEMENT CONSULTANT given for pain.
--- NOTE | 2016-08-26 07:30 | NUR ---
AM ROUNDS - PT ASLEEP, BREATHING UNLABORED AND EVEN. AWNING FINISHER PUMP DELIVERING CONTIUNOUS DILUDID AND NS AT 20 ML/HR. IBARRA DRAINING STRAW-COLORED URINE TO GRAVITY. NC ON PT AT 4L PER MIN. WILL CTM.
[2016-08-26 08:56] VITALS: BP 164/72
--- NOTE | 2016-08-26 10:36 | NUR ---
PT MOANING AND GROANING. DISPLAYS SIGNS OF PAIN. 2MG IV DILUDID BOLUS GIVEN. WILL REASSESS PAIN LEVEL. WILL CTM.
--- NOTE | 2016-08-26 12:53 | NUR ---
PT MOANING AND SAYING "HELP". NEW SYRINGE OF DILUDID STARTED 1MG/HR CONTINUOUS. 4 MG DILUDID WASTED. 2 MG BOLUS GIVEN PER ORDER. WILL CTM.
--- NOTE | 2016-08-26 15:10 | NUR ---
PT RESTLESS AND SAYING "HELP". SPOKE TO HOSPICE NURSE ABOUT INCREASING APRON OPERATOR. 2 MG DILUDID BOLUS GIVEN. WILL CTM.
--- NOTE | 2016-08-26 18:05 | NUR ---
Patient was admitted to [facility] w/ [facility] 08/24/16. Prior to admission he had been at [facility]. He had 2 previous admissions to [facility]. Patient has a , Angelina Antunez,and a son. He has respiratory failure w/ hypoxemia. Pneumonia and NSCLCA w/ history of worsening condition.
--- NOTE | 2016-08-26 18:06 | NUR ---
PT RESTING QUIETLY. BREATHING UNLABORED AND EQUAL. NO SIGNS OF DISTRESS AT THIS TIME. WILL CTM.
[2016-08-26 19:00] VITALS: BP 190/82
--- NOTE | 2016-08-26 19:58 | NUR ---
PT LYING IN BED, EYES CLOSED, RESPIRATIONS EVEN AND UNLABORED. PT ROUSABLE TO VOICE AT THIS TIME. CONTINUE TO MONITOR CLOSELY.
--- NOTE | 2016-08-26 21:13 | NUR ---
ADMISSIONS DIRECTOR DILAUDID CHANGED OUT R/T BEING SYRINGE BEING EMPTY, DR. JONES IN THE ROOM WITH PT. CONTINUE TO MONITOR.
--- NOTE | 2016-08-27 03:30 | NUR ---
PT SEDATED, DOES MOAN. FORK TRUCK DRIVER DILAUDID INFUSING ORDERED. CONTINUE TO MONITOR CLOSELY.
--- NOTE | 2016-08-27 04:38 | NUR ---
PT RESTLESS AND MOANING MORE, ATROPINE GTTS PLACED UNDER TONGUE, SPECIAL EFFECTS SPECIALIST DILAUDID SYRINGE REPLACED R/T BEING EMPTY. CONTINUE TO MONITOR CLOSELY.
--- NOTE | 2016-08-27 07:44 | NUR ---
AM ROUNDS - PT APPEARS TO BE SLEEPING WITH EQUAL AND NON LABORED BREATHING. FLOEY DRAINING CLEAR YELLOW. INFUSAPORT WITH NS AT 30CC/HR AND METAL CUTTER AT 1.5 CONT. PT HAS A YELLOW BAND ON. SIDE RAILS UP X2. O2 AT 4L VIA NC. WILL CONTINUE TO MONITOR.
[2016-08-27 09:56] VITALS: BP 171/62; BP 186/73
[2016-08-27 10:02] VITALS: BP 186/73
[2016-08-27 11:07] VITALS: BP 156/60
--- NOTE | 2016-08-27 13:35 | NUR ---
PT IN BED WITH FAMILY AT BEDSIDE. PT HAVING IRREGULAR BREATHING WITH PAUSES. WILL CONTINUE TO MONITOT
[2016-08-27 16:00] VITALS: BP 143/50
--- NOTE | 2016-08-27 20:15 | NUR ---
PT RESTING IN BED WITH EYES CLOSED. ROUSED UP WHEN VITAL SIGNS BEING TAKEN. BEGAN TO MOAN AND MAKE UNCLEAR NOISES ONCE HE WAS AWAKENED. O2 SAT 88% ON 4L, BUT RESPS ARE NONLABORD. RIGHT SC PORT WITH NS @ 30ML/HR AND DILAUDID LOGGING EQUIPMENT MECHANIC AT 1.5MG HR/CONTINUOUS BOTH INFUSING. IBARRA PATENT TO BEDSIDE DRAIN BAG. SEE SHIFT ASSESSMENT. CPOC. COMFORT MEASURES.
[2016-08-27 20:30] VITALS: BP 131/62
--- NOTE | 2016-08-28 00:57 | NUR ---
IV VALIUM ADMINISTERED. IVF + DILAUDID MANAGER ACQUISITION INFUSING. CLEAN/DRY. CPOC.
--- NOTE | 2016-08-28 01:18 | NUR ---
NEW DILAUDID PRODUCT MARKETING CONSULTANT SYRINGE INITIATED.
[2016-08-28 04:00] VITALS: BP 157/51
--- NOTE | 2016-08-28 05:48 | NUR ---
SCHEDULED VALIUM 2MG SIVP GIVEN. PT WITH REGULAR/DEEP RESPIRATIONS. WILL PULL AWAY FROM PHYSICAL STIMULI. DILAUDID ACCESS REPRESENTATIVE IN USE FOR PAIN CONTROL. COMFORT MEASURES IN PLACE. CPOC.
--- NOTE | 2016-08-28 07:49 | NUR ---
AM ROUNDING- RECEIVED REPORT FROM LOST AND FOUND CLERK NURSE JUAN MIGUEL. PT IS CURRENTLY LAYING IN BED ON BACK WITH EYES OPEN RESTING. SHALLOW RESPIRATIONS SEEN. ON HOSPICE PER ORDER. DNR. ON AT 4L VIA NC. IV SEEN TO RIGHT CHEST INFUSAPORT WITH NS RUNNING AT 30CC. SUPERINTENDENT AMMUNITION STORAGE PUMP WITH DILAUDID RUNNING AT 1.5CC CONTINUOUS. IBARRA CATHETER SEEN WITH SCANT URINE. NO NEED AT CURRENT TIME. WILL CONTINUE TO MONITOR AND CONTINUE WITH PLAN OF CARE.
--- NOTE | 2016-08-28 10:35 | NUR ---
0858- UPON GOING INTO PTS ROOM TO CHANGE OUT NETWORK CONTROL SUPERVISOR SYRINGE, I NOTICED PT WAS NOT BREATHING. NO CHEST RISE AND FALL SEEN. NO PULSE FELT ON PALPATION. NO HEART TONES HEARD OVER AUSCULTATION. FIDEL ZENG (CHARGE NURSE) NOTIFIED. FIDEL ZENG CAME INTO ROOM AND LISTENED FOR HEART SOUNDS AND BREATH SOUNDS. NONE HEARD PER KARRI CHARGE NURSE. 0911- [facility] CALLED AND INFORMED OF PTS PASSING. 0912- DR. JONES PAGED, WILL AWAIT CALLBACK. 0913- [facility] CALLED TO INFORM ME THAT THEY HAVE NURSE ON WAY. 0916- CALLED TO INFORM THEM OF PTS PASSING AND THAT DR. JONES WAS PAGED SO HE COULD COME SEE PT. FAMILY MEMBER () STATES SHE WILL BE HERE IN APPROXIMATELY ONE HOUR. 0935- DR. JONES PAGED FOR SECOND TIME. 1040- [facility] NURSE ON UNIT. STATES SHE WILL ALL AERIAL LINEMAN AND LET HOME THAT FAMILY REQUEST KNOW OF PTS PASSING. NURSE STATES DR. JONES WAS CALLED AND STATES ER NURSE WILL COME AND SEE PT. WILL AWAIT ER NURSE TO COME. FAMILY MEMBERS ARE AT BEDSIDE.
--- NOTE | 2016-08-28 11:16 | NUR ---
1113- CALLED [facility] PER POLICY.
--- NOTE | 2016-08-28 11:19 | NUR ---
1106- DR. LOPEZ ON UNIT NOW.
--- NOTE | 2016-08-28 13:10 | NUR ---
HOME HERE TO TAKE PT.
--- NOTE | 2016-08-28 13:11 | NUR ---
1300- HOME HERE TO GET PT.
== END 2016-08-28 13:12 | DRG 951 ==
LOC: D.ICU 16:23 → D.M2 16:23
PROVIDERS: ADMIT Legal Medicine
DX: Z51.5 Encounter for palliative care (principal)